=== PATIENT | female | born 1970 | race African-American/Black ===

== ENCOUNTER 2016-10-14 08:35 | Emergency (ER) | payer OTHER ==
[2016-10-14 08:43] VITALS: PULSE 90; TEMP 98; BMI 32.0
[2016-10-14] MEDS ORDERED: KETOROLAC TROMETHAMINE 60 MG/2 ML VIAL IM ONE (09:03)
[2016-10-14] MEDS ORDERED: KETOROLAC TROMETHAMINE 60 MG/2 ML VIAL ONE (09:06)
--- NOTE | 2016-10-14 09:21 | PDOC ---
History of Present Illness - General Chief Complaint: Pain Stated Complaint: HIP PAIN Time Seen by Provider: 10/14/16 08:45 History Source: Patient Exam Limitations: No Limitations - History of Present Illness Initial Comments: 10/14/16 09:16 45 yr female with history of asthma, chronic low back pain, left side sciatica states the past 3 days pain is worsening and radiating across low back to left buttock and thigh. no abd pain no fever, no urinary or bowel complaints, no saddle anesthesia . Pt is followed by . Severity: reports: moderate Pain Location: reports: back Method of Injury: Yes: unknown Loss of Consciousness: no loss of consciousness Associated Symptoms (Fall): denies symptoms Past History - Past Medical History Allergies/Adverse Reactions: Allergies Allergy/AdvReac Type Severity Reaction Status Date / Time antiarthritic combination Allergy blister Verified 10/14/16 08:41 no.1 rash [From [facility] [place]] camphor [From [facility] [place]] Allergy Verified 10/14/16 08:41 menthol [From [facility] [place]] Allergy Verified 10/14/16 08:41 methyl salicylate Allergy Verified 10/14/16 08:41 [From [facility] [place]] rofecoxib [From Vioxx] Allergy Swelling Verified 10/14/16 08:41 tramadol Allergy Hives Verified 10/14/16 08:42 tramadol HCl [From Ultram] Allergy Swelling Verified 10/14/16 08:41 Home Medications: Ambulatory Orders Pregabalin [Lyrica -] 100 mg PO BID 08/12/15 Cyclobenzaprine HCl [Flexeril -] 5 mg PO TID PRN #21 tablet 10/14/16 Methylprednisolone [Medrol Dose Mohan] 4 mg PO ASDIR #21 tablet 10/14/16 Anemia: No Asthma: Yes Cancer: No Cardiac Disorders: No CVA: No COPD: No CHF: No Dementia: No Diabetes: No GI Disorders: Yes (HX ULCER/HERNIA, pancreatitis) Disorders: Yes (ovarian cysts) HTN: No Hypercholesterolemia: No Liver Disease: No Suicide Attempt (Hx): No Seizures: No Thyroid Disease: No Other medical history: BACK PAIN - Surgical History Abdominal Surgery: Yes (hernia, ) Appendectomy: No Cardiac Surgery: No Cholecystectomy: No Lung Surgery: No Neurologic Surgery: Yes (EPIDURAL INJECTIONS) Orthopedic Surgery: Yes (L4TH&5TH FINGER REPAIR) Other Surgical History: 10/14/16 09:20 hysterectomy - Reproductive History (#): 5 Para: 3 Spontaneous : 2 - Immunization History Immunization Up to Date: Yes - Psycho/Social/Smoking Cessation Hx Anxiety: Yes Suicidal Ideation: No Smoking Status: No Smoking History: Current every day smoker Have you smoked in the past 12 months: Yes Number of Cigarettes Smoked Daily: 4 If you are a former smoker, when did you quit?: 7 months Information on smoking cessation initiated: No 'Breaking Loose' booklet given: 12/13/15 Hx Alcohol Use: No Drug/Substance Use Hx: No Substance Use Type: None Hx Substance Use Treatment: No Trauma Specific PMHX - Complaint Specific PMHX Arthritis: Yes Back Injury: Yes Review of Systems - Review of Systems Able to Perform ROS?: Yes Is the patient limited Singaporean proficient: No Constitutional: No: Symptoms Reported HEENTM: No: Symptoms Reported Respiratory: No: Symptoms reported Cardiac (ROS): No: Symptoms Reported ABD/GI: No: Symptoms Reported : No: Symptoms Reported Musculoskeletal: Yes: See HPI, Back Pain Integumentary: No: Symptoms Reported Neurological: No: Symptoms reported *Physical Exam - Vital Signs Last Vital Signs Temp Pulse Resp BP Pulse Ox 98.0 F 90 20 144/105 100 10/14/16 08:37 10/14/16 08:37 10/14/16 08:37 10/14/16 08:37 10/14/16 08:37 - Physical Exam General Appearance: Yes: Nourished, Appropriately Dressed, Other (sitting cross legged comfortably on stretcher ). No: Apparent Distress HEENT: positive: EOMI, BERH[place], Normal ENT Inspection, TMs Normal, Pharynx Normal Neck: positive: Supple Respiratory/Chest: positive: Lungs Clear, Normal Breath Sounds Cardiovascular: positive: Regular Rhythm, Regular Rate Gastrointestinal/Abdominal: positive: Normal Bowel Sounds, Soft. negative: Tender Lymphatic: negative: Adenopathy Musculoskeletal: positive: Normal Inspection, Decreased Range of Motion, Vertebral Tenderness (lower lumbar spine and left paraspinal soft tissue TTP). negative: CVA Tenderness, CVA Tenderness (R), CVA Tenderness (L) Extremity: positive: Normal Capillary Refill, Normal Inspection, Normal Range of Motion, Pelvis Stable. negative: Swelling, Calf Tenderness Integumentary: positive: Normal Color, Dry, Warm Neurologic: positive: Fully Oriented, Alert, Normal Mood/Affect, Normal Response , Motor Strength 01/29 ED Treatment Course - RADIOLOGY Radiology Studies Ordered: Category Date Time Status SPINE-LUMBAR ONLY [RAD] Stat Radiology 10/14/16 09:04 Ordered - Medications Given in the ED: ED Medications Discontinued Medications Generic Name Dose Route Start Last Admin Trade Name Freq PRN Reason Stop Dose Admin Ketorolac Tromethamine 60 mg 10/14/16 09:03 10/14/16 09:15 Toradol Injection - IM 10/14/16 09:04 60 mg ONCE ONE Administration Medical Decision Making - Medical Decision Making 10/14/16 09:21 cc: low back pain left buttock to thigh radiates across low back will get xray , toradol for pain (pt has had before states it helps) pt has no urinary or bowel dysfunction 10/14/16 13:12 xray results discussed with pt pt to follow with orthopedist as discussed pt is aware of reasons to return to the ER pt stable no acute distress, ambulatory *DC/Admit/Observation/Transfer Diagnosis at time of Disposition: Low back pain with sciatica Qualifiers: Chronicity: chronic Back pain laterality: left Sciatica laterality: sciatica of left side Qualified Code(s): M54.42 - Lumbago with sciatica, left side - Discharge Dispostion Disposition: HOME Condition at time of disposition: Improved - Prescriptions Prescriptions: Cyclobenzaprine HCl [Flexeril -] 5 mg PO TID PRN #21 tablet PRN Reason: Muscle Spasms Methylprednisolone [Medrol Dose Mohan] 4 mg PO ASDIR #21 tablet - Referrals Referrals: Cyrus De Leon MD [Primary Care Provider] - Eric Burciaga MD [Staff Physician] - - Patient Instructions Additional Instructions: follow with the orthopedist or with your neurologist in 3-7 days for follow up take the flexeril muscle relaxant as prescribed for spasm, DO 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
[2016-10-14 09:29] VITALS: BP 132/86
== END 2016-10-14 10:07 | disposition home or self-care (01) ==
LOC: JER 08:35 → JERFT 08:35
PROC: 3E0233Z Introduction of Anti-inflammatory into Muscle, Percutaneous Approach (ICD-10-PCS; principal; 2016-10-14)
DX: M54.42 Lumbago with sciatica, left side (principal); J45.909 Unspecified asthma, uncomplicated; F17.210 Nicotine dependence, cigarettes, uncomplicated
CPT/HCPCS: 72100-TC; 96372; 99281-25

== ENCOUNTER 2016-12-31 11:01 | Emergency (ER) | payer OTHER ==
[2016-12-31 11:22] VITALS: BP 132/99; PULSE 81; TEMP 98.2; BMI 31.4
== END 2016-12-31 13:00 | disposition left against medical advice (07) ==
LOC: JER 11:01 → JERFT 11:01
DX: Z53.21 Procedure and treatment not carried out due to patient leaving prior to being seen by health care provider (principal)
CPT/HCPCS: 99281-25

== ENCOUNTER 2017-01-11 21:44 | Emergency (ER) | payer OTHER ==
[2017-01-11 21:50] VITALS: BP 131/86; PULSE 115; TEMP 97.5; BMI 31.2
[2017-01-11] MEDS ORDERED: OXYCODONE/APAP 5/325MG COMBO TABLET PO ONE (22:02)
[2017-01-11] MEDS ORDERED: OXYCODONE/APAP 5/325MG COMBO TABLET ONE (22:29)
--- NOTE | 2017-01-12 00:50 | PDOC ---
"History of Present Illness - General Chief Complaint: Muscle Cramping Stated Complaint: L LEG PAIN Time Seen by Provider: 01/11/17 21:52 History Source: Patient Exam Limitations: No Limitations - History of Present Illness Initial Comments: 01/12/17 00:46 46 yo Female patient presents to ED c/o left hip pain. Patient states she was sitting on the floor her laundry when she tried to stand up twice and was unable to. Patient reports she had to be assisted to her couch by her son and then called EMS. LNMP: Hysterectomy. Denies numbness, tingling, trauma, or any other complaints at this time. Modifying Factors: worse with: cold therapy, eating, immobilization, medication , movement, rest, other Associated Symptoms: denies: denies symptoms, chest pain, cough, diaphoresis, fever/chills, headaches, loss of appetite, malaise, nausea/vomiting, rash, seizure, shortness of breath, syncope, weakness, other Aspirin Received prior to arrival: No: no aspirin today, unknown, 81 mg x 1, 81 mg x 2, 81 mg x 3, 81 mg x 4, 325 mg x 1, provided at home, provided by EMS, provided by ED Beta Brayan Given by EMS(Core Measure): No Beta Brayan Taken at Home(Core Measure): No Beta Brayan Not Indicated at this Time(Core Measure): No Past History - Travel Traveled outside of the country in the last 30 days: No Close contact w/someone who was outside of country & ill: No - Past Medical History Allergies/Adverse Reactions: Allergies Allergy/AdvReac Type Severity Reaction Status Date / Time antiarthritic combination Allergy blister Verified 01/11/17 21:47 no.1 rash [From [place]] camphor [From [place] [facility]] Allergy Verified 01/11/17 21:47 menthol [From [place]] Allergy Verified 01/11/17 21:47 methyl salicylate Allergy Verified 01/11/17 21:47 [From [place]] rofecoxib [From Vioxx] Allergy Swelling Verified 01/11/17 21:47 tramadol Allergy Hives Verified 01/11/17 21:47 tramadol HCl [From Ultram] Allergy Swelling Verified 01/11/17 21:47 Home Medications: Ambulatory Orders Metaxalone [Skelaxin] 800 mg PO QID PRN #28 tablet 01/12/17 Omeprazole 20 mg PO BID 01/12/17 Oxycodone HCl/Acetaminophen [Endocet 2.5-325 mg Tablet] 1 each PO Q6H PRN #12 tablet MDD 4 tabs 01/12/17 Anemia: No Asthma: Yes Cancer: No Cardiac Disorders: No CVA: No COPD: No CHF: No Dementia: No Diabetes: No GI Disorders: Yes (HX ULCER/HERNIA, pancreatitis) Disorders: Yes (ovarian cysts) HTN: No Hypercholesterolemia: No Liver Disease: No Suicide Attempt (Hx): No Seizures: No Thyroid Disease: No - Surgical History Abdominal Surgery: Yes (hernia, ) Appendectomy: No Cardiac Surgery: No Cholecystectomy: No Lung Surgery: No Neurologic Surgery: Yes (EPIDURAL INJECTIONS) Orthopedic Surgery: Yes (L4TH&5TH FINGER REPAIR) - Reproductive History (#): 5 Para: 3 Spontaneous : 2 - Immunization History Immunization Up to Date: Yes - Psycho/Social/Smoking Cessation Hx Anxiety: Yes Suicidal Ideation: No Smoking Status: No Smoking History: Never smoked Have you smoked in the past 12 months: No Number of Cigarettes Smoked Daily: 4 If you are a former smoker, when did you quit?: 7 months Information on smoking cessation initiated: No 'Breaking Loose' booklet given: 12/13/15 Hx Alcohol Use: No Drug/Substance Use Hx: No Substance Use Type: None Hx Substance Use Treatment: No Review of Systems - Review of Systems Able to Perform ROS?: Yes Is the patient limited Fijian proficient: No Musculoskeletal: Yes: Joint Pain All Other Systems: Reviewed and Negative *Physical Exam - Vital Signs Last Vital Signs Temp Pulse Resp BP Pulse Ox 97.5 F L 115 H 20 131/86 99 01/11/17 21:48 01/11/17 21:48 01/11/17 21:48 01/11/17 21:48 01/11/17 21:48 - Physical Exam General Appearance: Yes: Nourished, Appropriately Dressed. No: Apparent Distress, Disheveled, Mild Distress, Moderate Distress, Severe Distress Respiratory/Chest: positive: Lungs Clear, Normal Breath Sounds. negative: Respiratory Distress, Accessory Muscle Use, Labored Respiration, Decreased Breath Sounds, Stridor, Wheezing Cardiovascular: positive: Regular Rhythm, Regular Rate. negative: Edema, JVD, Murmur Gastrointestinal/Abdominal: positive: Normal Bowel Sounds, Soft. negative: Distended, Guarding, Rebound, Tenderness Musculoskeletal: positive: Normal Inspection. negative: CVA Tenderness Extremity: positive: Normal Capillary Refill, Normal Inspection, Normal Range of Motion, Tender (Lt hip tenderness on examination. Decreased adduction and abduction.), Pelvis Stable. 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 NML intact, Fully Oriented, Alert, Normal Mood/ Affect, Normal Response, Motor Strength 01/29 ED Treatment Course - RADIOLOGY Radiology Studies Ordered: Category Date Time Status HIP & PELVIS-LEFT [RAD] Stat Radiology 01/12/17 00:20 Ordered - Medications Given in the ED: ED Medications Discontinued Medications Generic Name Dose Route Start Last Admin Trade Name Freq PRN Reason Stop Dose Admin Oxycodone/Acetaminophen 2 combo 01/11/17 22:02 01/11/17 22:39 Percocet 5/325 - PO 01/11/17 22:03 2 combo ONCE ONE Administration Medical Decision Making - Medical Decision Making 01/12/17 01:18 logo Welcome Casper Sherman Update Personal Info | FAQ | Help | Search Results Help Please direct any questions regarding prescription data displayed on the [facility] to the dispensing pharmacy (Click - Show Extended View). The dispenser is the source of all data presented. Only the dispenser can confirm or modify the data reported to, and displayed on, the [facility]. Patient Search Multi-Patient Search Reports Drug Listing Designation My [facility] Numbers Data Detail Level: Printer-Friendly View | Show Extended View Confidential Drug Utilization Report Search Terms: Eileen Mcgill, 1970 Search Date: 01/12/2017 01:17:34 AM The Drug Utilization Report below displays all of the controlled substance prescriptions, if any, that your patient has filled in the last twelve months. The information displayed on this report is compiled from pharmacy submissions to the Department, and accurately reflects the information as submitted by the pharmacies. This report was requested by: Casper Sherman | Reference #: [id number] Others' Prescriptions Patient Name: Eileen Wren Date: 1970 Address: [address] [place] [address] Sex: Female Rx Written Rx Dispensed Drug Quantity Days Supply Prescriber Name 12/29/2016 12/29/2016 oxycodone-acetaminophen 5-325 mg tab 6 2 Debbie Hoang 12/18/2016 12/18/2016 oxycodone-acetaminophen 5-325 mg tab 14 4 Leonid Watson N 11/09/2016 12/12/2016 lyrica 150 mg capsule 60 30 HunterJose J MD 11/17/2016 11/17/2016 acetaminophen-cod #3 tablet 6 2 Debbie Hoang 11/09/2016 11/14/2016 lyrica 150 mg capsule 60 30 HunterJose J MD 05/05/2016 10/01/2016 carisoprodol 350 mg tablet 60 30 DoblinKimberly NP 09/01/2016 10/01/2016 lyrica 150 mg capsule 60 30 HunterJose J MD 09/07/2016 09/07/2016 acetaminophen-cod #3 tablet 30 5 MendozaMukund etienneony N 09/01/2016 09/01/2016 lyrica 150 mg capsule 60 30 HunterJose J MD 05/05/2016 08/28/2016 carisoprodol 350 mg tablet 60 30 DoblinKimberly NP 07/20/2016 08/28/2016 lyrica 100 mg capsule 60 30 HunterJose J MD 08/03/2016 08/03/2016 oxycodone-acetaminophen 5-325 mg tab 12 3 Winnie Fry Nicol, FNP 07/20/2016 07/20/2016 lyrica 100 mg capsule 60 30 HunterJose J MD 07/20/2016 07/20/2016 acetaminophen-cod #2 tablet 60 30 HunterJose J MD 05/05/2016 06/29/2016 carisoprodol 350 mg tablet 60 30 DoblinKimberly NP 06/08/2016 06/10/2016 oxycodone hcl er 20 mg tablet 60 30 Doblin, Kimberly MALDONADO 04/03/2016 06/05/2016 lyrica 100 mg capsule 60 30 Doblin, Kimberly MALDONADO 05/05/2016 05/25/2016 carisoprodol 350 mg tablet 60 30 DoblinKimberly NP 04/03/2016 05/05/2016 carisoprodol 250 mg tablet 60 30 Doblin, Kimberly [employer]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 04/03/2016 05/05/2016 lyrica 100 mg capsule 60 30 Doblin, Kimberly [employer]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 05/05/2016 05/05/2016 oxycodone hcl er 20 mg tablet 60 30 Doblin, Kimberly NP Patient Name: Eileen Mcgill Date: 1970 Address: [address] [place] [address] Sex: Female Rx Written Rx Dispensed Drug Quantity Days Supply Prescriber Name 09/18/2016 09/18/2016 acetaminophen-cod #3 tablet 60 20 Khang, Kimberlee Aleman MD Patient Name: Eileen Wren Date: 1970 Address: [address] [place] [address] Sex: Female Rx Written Rx Dispensed Drug Quantity Days Supply Prescriber Name 04/03/2016 04/03/2016 oxycontin 20 mg tablet 60 30 Doblin, Kimberly [employer]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 04/03/2016 04/03/2016 carisoprodol 250 mg tablet 60 30 Doblin, Kimberly [employer]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 04/03/2016 04/03/2016 lyrica 100 mg capsule 60 30 Doblin, Kimberly [employer]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 03/06/2016 03/06/2016 lyrica 100 mg capsule 60 30 Doblin, Kimberly [employer]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 03/06/2016 03/06/2016 oxycontin 20 mg tablet 60 30 Doblin, Kimberly [employer]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 03/06/2016 03/06/2016 carisoprodol 250 mg tablet 60 30 Doblin, Kimberly [employer]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 02/07/2016 02/07/2016 oxycontin 20 mg tablet 60 30 Doblin, Kimberly [employer]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 * - Drugs marked with an asterisk are compound drugs. If the compound drug is made up of more than one controlled substance, then each controlled substance will be a separate row in the table. Search Other States To report suspicious activity related to controlled substances, please click here and provide any relevant information. To send questions or comments about this report to the [place] of Narcotic Enforcement, please click here or call (Option 1). For information regarding substance abuse rehabilitation treatment, please visit www.[place].gov or call . *DC/Admit/Observation/Transfer Diagnosis at time of Disposition: Low back pain with sciatica Qualifiers: Chronicity: chronic Back pain laterality: left Sciatica laterality: sciatica of left side Qualified Code(s): M54.42 - Lumbago with sciatica, left side; G89.29 - Other chronic pain - Discharge Dispostion Disposition: HOME Condition at time of disposition: Improved Admit: No - Prescriptions Prescriptions: Oxycodone HCl/Acetaminophen [Endocet 2.5-325 mg Tablet] 1 each PO Q6H PRN #12 tablet MDD 4 tabs PRN Reason: Severe Pain Metaxalone [Skelaxin] 800 mg PO QID PRN #28 tablet PRN Reason: Back Pain - Patient Instructions Printed Discharge Instructions: DI for Low Back Pain Additional Instructions: FOLLOW UP WITH DR. GONZALEZ. CALL TO SCHEDULE APPOINTMENT. TAKE MEDICATIONS PRESCRIBED. DO NOT DRIVE, DRINK ALCOHOL, OR OPERATE HEAVY MACHINERY WHILE TAKING ENDOCET OR SKELAXIN. YOU NEED TO FOLLOW UP WITH YOUR GOLD LEAF ROLLER TO DEVELOP PLAN IN MANAGING YOUR CHRONIC PAIN. Print Language: PORTUGUESE"
[2017-01-12] MEDS ORDERED: OXYCODONE/APAP 5/325MG COMBO TABLET PO ONE (01:43)
[2017-01-12] MEDS ORDERED: OXYCODONE/APAP 5/325MG COMBO TABLET ONE (01:45)
[2017-01-12 02:01] LABS: URINE APPEARANCE CLEAR; URINE COLOR YELLOW
[2017-01-12 02:02] LABS: URINE BILIRUBIN NEGATIVE (NEGATIVE); URINE BLOOD NEGATIVE (NEGATIVE); URINE GLUCOSE (UA) NEGATIVE (NEGATIVE); URINE KETONE NEGATIVE (NEGATIVE); URINE LEUK ESTERASE NEGATIVE (NEGATIVE); URINE NITRITE POSITIVE (NEGATIVE); URINE PROTEIN NEGATIVE (NEGATIVE); URINE UROBILINOGEN 0.2 E.U/dl E.U./dl (0.2-1.0)
[2017-01-12 02:20] LABS: URINE RBC <1 /hpf (0-3); URINE WBC 6 /hpf (3-5)
[2017-01-12 02:21] LABS: URINE BACTERIA MANY /hpf (NONE SEEN); URINE HYALINE CAST 25 /lpf; URINE MUCUS MANY
== END 2017-01-12 01:57 | disposition home or self-care (01) ==
LOC: JER 21:44
DX: M54.42 Lumbago with sciatica, left side (principal); G89.29 Other chronic pain
CPT/HCPCS: 73523-TC; 81003; 81015; 87086; 99281-25; 99282-25

== ENCOUNTER 2017-04-03 17:27 | Emergency (ER) | payer OTHER ==
[2017-04-03 17:37] VITALS: BP 152/84; TEMP 98.1; BMI 35.2
[2017-04-03] MEDS ORDERED: predniSONE 20 MG TABLET (UD) PO ONE (18:43)
[2017-04-03] MEDS ORDERED: CYCLOBENZAPRINE HCL 10 MG TABLET (FP) PO ONE (18:43)
[2017-04-03] MEDS ORDERED: CYCLOBENZAPRINE HCL 10 MG TABLET (FP) ONE (18:46)
[2017-04-03] MEDS ORDERED: predniSONE 20 MG TABLET (UD) ONE (18:46)
[2017-04-03] MEDS ORDERED: OXYCODONE/APAP 5/325MG COMBO TABLET PO ONE ×3 (18:49→20:39)
--- NOTE | 2017-04-03 18:49 | PDOC ---
History of Present Illness - General Chief Complaint: Back Pain Stated Complaint: PAIN Time Seen by Provider: 04/03/17 18:10 History Source: Patient Exam Limitations: No Limitations - History of Present Illness Initial Comments: 04/03/17 20:39 My Chief Complaint: Left-sided lower back pain with radiation down left leg History of present Illness: Patient is a 46-year-old female with a history of gastric reflux. Asthma, history of pancreatitis, osteopenia left hip and lumbar disc disease with previous radiculopathy down left leg here today complaining of worsening left-sided lower back pain with radiation down left lateral thigh to anterior left lower leg getting worse over the last 3 days. Patient denies any strenuous activities or exercise. Patient reports that in the past she had gotten epidural injections. Patient numbness of her left leg or any saddle anesthesia or incontinency. Patient reports having an MRI of lumbar sacral spine on 11/16/2016 that showed disc dissemination facet arthropathy and loss of disc height grade 1 spondylolisthesis L4 and L5 and some encroachment onto L5 and S1 nerve root. He felt pain and Aleve. Patient reports the pain currently as a 10 out of 10. Patient reports that her left leg gave out twice today when walking. 04/03/17 22:43 Occurred: reports: other (3 days ) Severity: reports: severe (left sided radiates to left lateral thigh, than anterior down left leg to foot) Pain Location: reports: back (left lower radiates down left lateral thigh than anterior down left lower leg) Method of Injury: Yes: unknown Modifying Factors: improves with: None Loss of Consciousness: no loss of consciousness Associated Symptoms (Fall): trouble walking (intermittently ) Past History - Past Medical History Allergies/Adverse Reactions: Allergies Allergy/AdvReac Type Severity Reaction Status Date / Time antiarthritic combination Allergy blister Verified 04/03/17 17:34 no.1 rash [From [place]] camphor [From [place]] Allergy Verified 04/03/17 17:34 menthol [From [place]] Allergy Verified 04/03/17 17:34 methyl salicylate Allergy Verified 04/03/17 17:34 [From [place]] rofecoxib [From Vioxx] Allergy Swelling Verified 04/03/17 17:34 tramadol Allergy Hives Verified 04/03/17 17:34 tramadol HCl [From Ultram] Allergy Swelling Verified 04/03/17 17:34 Home Medications: Ambulatory Orders Omeprazole 40 mg PO DAILY 01/28/17 Metaxalone [Skelaxin] 800 mg PO TID PRN #21 tablet 04/03/17 Methylprednisolone [Medrol Dose [place]] 4 mg PO ASDIR #21 tablet 04/03/17 Oxycodone HCl/Acetaminophen [Percocet 5-325 mg Tablet] 1 - 2 tab PO Q6H PRN #18 tab MDD 6 04/03/17 Anemia: No Asthma: Yes Cancer: No Cardiac Disorders: No CVA: No COPD: No CHF: No Dementia: No Diabetes: No GI Disorders: Yes (HX ULCER/HERNIA, pancreatitis) Disorders: Yes (ovarian cysts) HTN: No Hypercholesterolemia: No Liver Disease: No Suicide Attempt (Hx): No Seizures: No Thyroid Disease: No Other medical history: back pain - Surgical History Abdominal Surgery: Yes (hernia, ) Appendectomy: No Cardiac Surgery: No Cholecystectomy: No Lung Surgery: No Neurologic Surgery: Yes (EPIDURAL INJECTIONS) Orthopedic Surgery: Yes (L4TH&5TH FINGER REPAIR) - Reproductive History (#): 5 Para: 3 Spontaneous : 2 - Immunization History Immunization Up to Date: Yes - Psycho/Social/Smoking Cessation Hx Anxiety: Yes Suicidal Ideation: No Smoking Status: No Smoking History: Current every day smoker Have you smoked in the past 12 months: Yes Number of Cigarettes Smoked Daily: 4 If you are a former smoker, when did you quit?: 7 months Information on smoking cessation initiated: Yes 'Breaking Loose' booklet given: 04/03/17 Hx Alcohol Use: No Drug/Substance Use Hx: No Substance Use Type: Alcohol Hx Substance Use Treatment: No Trauma Specific PMHX - Complaint Specific PMHX Arthritis: Yes Back Injury: Yes Review of Systems - Review of Systems Able to Perform ROS?: Yes Constitutional: No: Symptoms Reported HEENTM: No: Symptoms Reported Respiratory: No: Symptoms reported Cardiac (ROS): No: Symptoms Reported ABD/GI: No: Symptoms Reported : No: Symptoms Reported Musculoskeletal: Yes: Back Pain (left lower back pain radiates down left lateral thigh than anteriorly down left anterior leg ) Integumentary: No: Symptoms Reported Neurological: No: Symptoms reported *Physical Exam - Vital Signs Last Vital Signs Temp Pulse Resp BP Pulse Ox 98.1 F 152/84 04/03/17 17:34 04/03/17 17:34 - Physical Exam General Appearance: Yes: Appropriately Dressed Respiratory/Chest: positive: Lungs Clear, Normal Breath Sounds. negative: Chest Tender, Respiratory Distress Cardiovascular: positive: Regular Rhythm, Regular Rate, S1, S2 Musculoskeletal: positive: Normal Inspection, Decreased Range of Motion (from waist ), Muscle Spasm (left lumbar paraspinal muscle ). negative: CVA Tenderness, CVA Tenderness (R), CVA Tenderness (L), Vertebral Tenderness Extremity: positive: Normal Capillary Refill, Normal Inspection, Normal Range of Motion Integumentary: positive: Normal Color Neurologic: positive: Alert, Normal Response, Motor Strength 5/5 (right leg motor/strength 5/5/, slightly decreased left leg 4/4), Respond to painful stimul (right leg, left lower leg decreased sensation anteriorly ), Sensory Deficit (left lower leg decreased sensation anteriorly ), Other (+ SLR rt., negative left ). negative: Numbness Deep Tendon Reflexes: Knee (L): 3+, Knee (R): 3+ Medical Decision Making - Medical Decision Making Patient is a 46-year-old female with a history of gastric reflux. Asthma, history of pancreatitis, osteopenia left hip and lumbar disc disease with previous radiculopathy down left leg here today complaining of worsening left- sided lower back pain with radiation down left lateral thigh to anterior left lower leg getting worse over the last 3 days. Patient denies any strenuous activities or exercise. Patient reports that in the past she had gotten epidural injections. Patient numbness of her left leg or any saddle anesthesia or incontinency. Patient reports having an MRI of lumbar sacral spine on 2016 that showed disc dissemination facet arthropathy and loss of disc height grade 1 spondylolisthesis listhesis L4 and L5 and some encroachment onto L5 and S1 nerve root. He felt pain and Aleve. Patient reports the pain currently as a 10 out of 10. Patient reports that her left leg gave out twice today when walking. left lower back pain with radiculopathy down left leg PLAN: perococet 5 mg/325 mg po now flexeril 10 mg po now pt. refused "its gives me palpitations prednisone 40 mg po now than medrol dose pack cane pain persists will given additional percocet 5mg/325 mg po now will discharge to home with rx for percocet 5mg/325 mg po every 6 hrs prn severe pain # 12 skelexin 800 mg tid for 7 days follow up with pain management follow up with orthopedist 04/03/17 20:28 REMINDER: Attestation to the completion of mandatory prescriber education, using the [employer] application on [employer], was due 03/27/17. For more information go to: [email or web address]/ Patient Search Multi-Patient Search Reports Drug Listing Designation My NASRIN Numbers Data Detail Level: Printer-Friendly View Extended View Confidential Drug Utilization Report Search Terms: Eileen Mcgill, 1970 Search Date: 04/03/2017 08:28:06 PM The Drug Utilization Report below displays all of the controlled substance prescriptions, if any, that your patient has filled in the last twelve months. The information displayed on this report is compiled from pharmacy submissions to the Department, and accurately reflects the information as submitted by the pharmacies. This report was requested by: Xuan Smith | Reference #: [id number] Others' Prescriptions Patient Name: Eileen Wren Date: 1970 Address: [address] [place] [address] Sex: Female Rx Written Rx Dispensed Drug Quantity Days Supply Prescriber Name 01/15/2017 01/15/2017 oxycodone-acetaminophen 5-325 mg tab 5 2 Fabio Dennison 09/01/2016 01/12/2017 lyrica 150 mg capsule 60 30 Jose J Harrison MD 01/12/2017 01/12/2017 oxycodone-acetaminophen 5-325 mg tab 12 3 Aminata Avalos Acnp 12/29/2016 12/29/2016 oxycodone-acetaminophen 5-325 mg tab 6 2 Debbie Hoang 04/03/17 20:50 04/03/17 21:19 04/03/17 22:44 *DC/Admit/Observation/Transfer Diagnosis at time of Disposition: Lumbar pain with radiation down left leg - Discharge Dispostion Disposition: HOME Condition at time of disposition: Stable - Prescriptions Prescriptions: Methylprednisolone [Medrol Dose Mohan] 4 mg PO ASDIR #21 tablet Oxycodone HCl/Acetaminophen [Percocet 5-325 mg Tablet] 1 - 2 tab PO Q6H PRN #18 tab MDD 6 PRN Reason: Severe Pain Metaxalone [Skelaxin] 800 mg PO TID PRN #21 tablet PRN Reason: Muscle Spasms - Referrals Referrals: Cyrus De Leon MD [Primary Care Provider] - Cory Finley MD [Staff Physician] - Ivan Waterman MD [Staff Physician] - - Patient Instructions Additional Instructions: Follow-up with orthopedist of your choice or bleed the orthopedist at [facility] that she were previously referred to Follow up with neurologist as soon as possible Use Cane for ambulation Return to emergency room if any numbness of private area or legs or inability to control bladder or bowel movements Patient understanding of discharge instructions and all questions were answered
[2017-04-03] MEDS ORDERED: OXYCODONE/APAP 5/325MG COMBO TABLET ONE ×2 (18:53→20:47)
== END 2017-04-03 21:28 | disposition home or self-care (01) ==
LOC: JERFT 17:27
DX: M54.16 Radiculopathy, lumbar region (principal)
CPT/HCPCS: 99281-25

== ENCOUNTER 2017-07-06 08:48 | Emergency (ER) | payer OTHER ==
[2017-07-06 08:52] VITALS: BP 140/84; PULSE 83; TEMP 98.2; BMI 34.7
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
[2017-07-06] MEDS ORDERED: KETOROLAC TROMETHAMINE 60 MG/2 ML VIAL IM ONE (09:36)
[2017-07-06] MEDS ORDERED: predniSONE 20 MG TABLET (UD) PO ONE (09:36)
[2017-07-06] MEDS ORDERED: predniSONE 20 MG TABLET (UD) ONE (09:41)
[2017-07-06] MEDS ORDERED: KETOROLAC TROMETHAMINE 60 MG/2 ML VIAL ONE (09:41)
== END 2017-07-06 09:50 | disposition home or self-care (01) ==
LOC: JERFT 08:48
PROC: 3E0233Z Introduction of Anti-inflammatory into Muscle, Percutaneous Approach (ICD-10-PCS; principal; 2017-07-06)
DX: S39.012A Strain of muscle, fascia and tendon of lower back, initial encounter (principal); X58.XXXA Exposure to other specified factors, initial encounter; Y93.89 Activity, other specified; Y92.231 Patient bathroom in hospital as the place of occurrence of the external cause; J45.909 Unspecified asthma, uncomplicated; N83.209 Unspecified ovarian cyst, unspecified side; F17.210 Nicotine dependence, cigarettes, uncomplicated
CPT/HCPCS: 99281-25

== ENCOUNTER 2017-08-12 11:22 | Emergency (ER) | payer OTHER ==
[2017-08-12 11:36] VITALS: TEMP 98.2; BMI 35.2
--- NOTE | 2017-08-12 11:48 | PDOC ---
History of Present Illness - General Chief Complaint: Pain, Acute Stated Complaint: SOB,CHEST PRESSURE,N/V/D,ABD PAIN Time Seen by Provider: 08/12/17 11:42 - History of Present Illness Initial Comments: 08/12/17 11:47 46 yo F with h/o asthma, DVT, chronic pelvic pain, right sided oophroectomy, and hysterectomy, L sided ovarian cyst who presents with complaint of SOB. Patient reports worsening SOB over the past 3 days with productive brown sputum cough and lower dull subcostal/diaphragmatic chest pain with radiation to back. Pain worse with deep inhalation. Endorses multiple episodes of non bloody emesis for the past 2 days. Transient episode of lightheadedness yesterday and subjective fever of 102. Denies fchills, diaphoresis, weakness, sensory disturbance, neck pain/jaw pain, leg swelling/tenderness abdominal pain, dysuria , flank pain. H/o DVT. Denies h/o NC, CABG, Stent, PE. Allergy to Vitrax, Tramadol, Ultram. PCP. Cyrus De Leon. 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 Smokes / PPD for 20 + years. Past History - Past Medical History Allergies/Adverse Reactions: Allergies Allergy/AdvReac Type Severity Reaction Status Date / Time antiarthritic combination Allergy blister Verified 08/12/17 11:31 no.1 rash [From [place]] camphor [From [place]] Allergy Verified 08/12/17 11:31 menthol [From [place]] Allergy Verified 08/12/17 11:31 methyl salicylate Allergy Verified 08/12/17 11:31 [From [place]] rofecoxib [From Vioxx] Allergy Swelling Verified 08/12/17 11:31 tramadol Allergy Hives Verified 08/12/17 11:31 tramadol HCl [From Ultram] Allergy Swelling Verified 08/12/17 11:31 Home Medications: Ambulatory Orders Cephalexin [Keflex] 500 mg PO BID 5 Days #9 capsule MDD 2 Tab 08/12/17 Fluconazole [Diflucan] 150 mg PO ONCE 10 Days #10 tablet 08/12/17 Omeprazole 40 mg PO DAILY 08/12/17 Pregabalin [Lyrica] 75 mg PO BID 08/12/17 Anemia: No Asthma: Yes Cancer: No Cardiac Disorders: No CVA: No COPD: No CHF: No Dementia: No Diabetes: No GI Disorders: Yes (HX ULCER/HERNIA, pancreatitis) Disorders: Yes (ovarian cysts) HTN: No Hypercholesterolemia: No Liver Disease: No Seizures: No Thyroid Disease: No - Surgical History Abdominal Surgery: Yes (hernia, ) Appendectomy: No Cardiac Surgery: No Cholecystectomy: No Lung Surgery: No Neurologic Surgery: Yes (EPIDURAL INJECTIONS) Orthopedic Surgery: Yes (L4TH&5TH FINGER REPAIR) - Reproductive History (#): 5 Para: 3 Spontaneous : 2 - Immunization History Immunization Up to Date: Yes - Suicide/Smoking/Psychosocial Hx Smoking Status: No Smoking History: Current some day smoker Have you smoked in the past 12 months: Yes Number of Cigarettes Smoked Daily: 3 If you are a former smoker, when did you quit?: 7 months Information on smoking cessation initiated: No 'Breaking Loose' booklet given: 07/06/17 Hx Alcohol Use: No Drug/Substance Use Hx: No Substance Use Type: None Hx Substance Use Treatment: No Review of Systems - Review of Systems Comments:: 08/12/17 11:47 GENERAL/CONSTITUTIONAL: No fever or chills. No weakness. HEAD, EYES, EARS, NOSE AND THROAT: No change in vision. No ear pain or discharge. No sore throat.- CARDIOVASCULAR: + SOB. No chest pain. RESPIRATORY: + cough, and wheezing. No hemoptysis. GASTROINTESTINAL: + Diarrhea, nausea, and vomiting. No or constipation. GENITOURINARY: No dysuria, frequency, or change in urination. MUSCULOSKELETAL: No joint or muscle swelling or pain. No neck or back pain. SKIN: No rash NEUROLOGIC: + lightheadedness. No headache, vertigo, loss of consciousness, or change in strength/sensation. ENDOCRINE: No increased thirst. No abnormal weight change HEMATOLOGIC/LYMPHATIC: + history of blood clots. No anemia, easy bleeding, ALLERGIC/IMMUNOLOGIC: No hives or skin allergy. *Physical Exam - Vital Signs Last Vital Signs Temp Pulse Resp BP Pulse Ox 98.2 F 101 H 19 125/65 99 08/12/17 11:31 08/12/17 11:31 08/12/17 11:31 08/12/17 11:31 08/12/17 11:31 - Physical Exam Comments: 08/12/17 11:45 GENERAL: Awake, alert, and fully oriented, in no acute distress HEAD: No signs of trauma, normocephalic, atraumatic EYES: PERRLA, EOMI, sclera anicteric, conjunctiva clear ENT: hearing grossly normal, nares patent, oropharynx clear without exudates. Moist mucosa NECK: Normal ROM, supple, no lymphadenopathy, JVD, or masses LUNGS: + diffuse expiratory rhonci. No distress, speaks full sentences. HEART: Regular rate and rhythm, normal S1 and S2, no murmurs, rubs or gallops, peripheral pulses normal and equal bilaterally. ABDOMEN: Soft, LLQ ttp, normoactive bowel sounds. No guarding, no rigidity, no rebound. No masses. Neg CVA or suprpapubic ttp. Neg benson sign or [place] point ttp. EXTREMITIES : Normal inspection, Normal range of motion, no edema. No clubbing or cyanosis. SKIN: Warm, Dry, normal turgor, no rashes or lesions noted. Heart Score/ECG Review - History History: Slightly suspicious - Electrocardiogram EKG: Normal - Age Age: 45-65 - Risk Factors Risk Factors Heart Score: Yes Smoking History, Yes Positive family hx of cardiac disease, Yes Hx Obesity Based on the list above the patient has:: >/=3 risk factors or Hx atherosclerotic disease - ECG Intrepretation Rhythm: Regular Rhythm - [place]: Normal - ST and T Early Repolarization: No Non Specific ST-T Wave changes: No Flattened T Waves: No Prolonged Q-T Interval: No - ECG Impressions Normal ECG: Yes Non-specific ST Elevation: No Tachycardia: Sinus ED Treatment Course - LABORATORY CBC & Chemistry Diagram: 08/12/17 11:58 08/12/17 12:39 Medical Decision Making - Medical Decision Making 08/12/17 12:30 46 yo F with h/o asthma, DVT, chronic pelvic pain, hysterectomy and right sided oophroectomy, and L sided ovarian cyst who presents with mutliple complaints, of abdominal pain and SOB. Patient reports worsening SOB over the past 3 days with productive brown sputum cough and lower dull subcostal/ diaphragmatic chest pain with radiation to back and worse with deep inhalation. Multiple episodes of non bloody emesis for the past 2 days. Reports subjective fevers. Denies chills, diaphoresis, weakness, sensory disturbance, neck pain/ jaw pain, leg swelling/tenderness abdominal pain, dysuria, flank pain. Physical exam reveals coarse lungs sounds and rhonci and predominant LLQ ttp. Patient mildly tachycardic on arrival ~101. Clinical s/s suspicous for pneumonia vs. bronchitis. Given patients left lower quadrant pain and h/o ovarian cyst will obtain imaging to r/o ovarian torsion. Also consider diverticulitis in setting of diarrhea, abdominal pain, N/V, and subjective fevers. ED Course: CBC, CMP, UA, Lipase Transvaginal U/S CXR: No acute cardiopulmonary pathology EKG: Sinus tachycardia with absent MARK, STD, or T wave inversion. 08/12/17 12:38 IV Tylenol 1000 mg 08/12/17 12:44 CT AP: 08/12/17 13:59 UA: + Urine Nitrite. Will treat with Cephalexin 500 mg BID x 9 for 5 days. 08/12/17 13:59 CBC, CMP: Unremarkable 08/12/17 14:14 Cephalexin 500 mg PO. 08/12/17 15:24 CT AP: No acute Pathology Pelvic U/s: No evidence of torsion. Left ovary difficult to visualize. 08/12/17 15:25 Patient is stable and ready for discharge. Discussed return precautions with patient and advised to f/u with PCP and perscribed cephalexin 500 mg BID 5 days. *DC/Admit/Observation/Transfer Diagnosis at time of Disposition: Urinary tract infection Qualifiers: Urinary tract infection type: site unspecified Hematuria presence: without hematuria Qualified Code(s): N39.0 - Urinary tract infection, site not specified - Discharge Dispostion Disposition: HOME Condition at time of disposition: Stable Admit: No - Prescriptions Prescriptions: Cephalexin [Keflex] 500 mg PO BID 5 Days #9 capsule MDD 2 Tab Fluconazole [Diflucan] 150 mg PO ONCE 10 Days #10 tablet - Referrals Referrals: Cyrus De Leon MD [Primary Care Provider] - - Patient Instructions - Post Discharge Activity - Attestations Physician Attestion: 08/12/17 15:42 I attest to the documentation provided in this note.
[2017-08-12] MEDS ORDERED: SODIUM CHLORIDE 0.9% 1000 ML INFUS.BAG IV ONE (11:51)
[2017-08-12] MEDS ORDERED: ONDANSETRON 4 MG/2 ML VIAL IVPUSH ONE (11:51)
[2017-08-12] MEDS: ALBUTEROL SO4 2.5/IPRATROPIUM 0.5 INH SOL 3 ML VIAL.NEB. NEB SCH ×3 (12:15→12:55)
[2017-08-12] MEDS ORDERED: ALBUTEROL SO4 2.5/IPRATROPIUM 0.5 INH SOL 3 ML VIAL.NEB. NEB ONE (12:17)
[2017-08-12] MEDS ORDERED: ONDANSETRON 4 MG/2 ML VIAL ONE ×2 (12:18→13:11)
[2017-08-12 12:41] LABS: BASOPHIL 0.5 % (0-2.0); EOSINOPHIL 0.6 % (0-4.5); MCHC 29.5 g/dl (32.0-36.0); MEAN CELL VOLUME 67.1 fl (80-96); MEAN PLT VOLUME 7.4 fl (7.5-11.1); NEUTROPHILS 61.1 % (42.8-82.8); PLATELET COUNT 402 K/MM3 (134-434); RDW 21.6 % (11.6-15.6)
[2017-08-12] MEDS ORDERED: ACETAMINOPHEN 1000 MG/100 ML VIAL (NON FORMULARY) IVPB ONE (12:42)
[2017-08-12] MEDS ORDERED: ACETAMINOPHEN INJECTION 100 ML IVPB ONE (12:49)
[2017-08-12 12:52] LABS: MCH 19.8 pg (25.7-33.7)
[2017-08-12 12:56] LABS: URINE APPEARANCE SLCLOUDY; URINE BILIRUBIN NEGATIVE (NEGATIVE); URINE BLOOD NEGATIVE (NEGATIVE); URINE COLOR LTYELLOW; URINE GLUCOSE (UA) NEGATIVE (NEGATIVE); URINE KETONE NEGATIVE (NEGATIVE); URINE NITRITE POSITIVE (NEGATIVE); URINE PROTEIN NEGATIVE (NEGATIVE); URINE UROBILINOGEN NEGATIVE mg/dL (0.2-1.0)
[2017-08-12 13:01] LABS: URINE BACTERIA RARE /hpf (NONE SEEN); URINE MUCUS RARE; URINE RBC 1; URINE WBC 5
[2017-08-12] MEDS ORDERED: morphine CARPU-JECT 2 MG/1 ML DISP.SYRIN IVPUSH ONE (13:06)
[2017-08-12] MEDS ORDERED: ONDANSETRON 4 MG/2 ML VIAL IVPB ONE (13:06)
[2017-08-12] MEDS ORDERED: morphine SULFATE 4 MG/ML VIAL ONE (13:11)
[2017-08-12 13:20] LABS: ANION GAP 12 (8-16); CALCIUM 9.6 mg/dL (8.5-10.1); CO2 22 mmol/L (21-32); CREATININE 1.1 mg/dL (0.55-1.02); GLUCOSE,RANDOM 74 mg/dL (74-106); SGOT/AST 14 U/L (15-37); SGPT/ALT 23 U/L (12-78)
[2017-08-12 13:22] LABS: ALBUMIN 3.8 g/dl (3.4-5.0); ALK PHOS 125 U/L (45-117); BILIRUBIN,TOTAL 0.3 mg/dL (0.2-1.0); TOT PROT 7.6 g/dl (6.4-8.2)
[2017-08-12] MEDS ORDERED: CEPHALEXIN 250 MG/5 ML ORAL SUSPENSION PO ONE (14:12)
[2017-08-12 14:21] LABS: ANISOCYTOSIS 2+; HYPOCHROMIA 3+; MICROCYTOSIS 2+; TARGET CELLS 1+
[2017-08-12] MEDS ORDERED: CEPHALEXIN MONOHYDRATE 250 MG CAPSULE (FP) ONE (14:28)
--- NOTE | 2017-08-12 15:01 | PDOC ---
Attending Attestation - Resident Resident Name: CamRobiJoe - ED Attending Attestation I have performed the following: I have examined & evaluated the patient, The case was reviewed & discussed with the resident, I agree w/resident's findings & plan, Exceptions are as noted - HPI HPI: 08/12/17 15:01 46-year-old female with a history of asthma hypertension previous ovarian cyst status post hysterectomy and oophorectomy many years ago, here today complaining of lower abdominal pain. Patient states symptoms started 3 days ago described as left sided no radiation. Does describe urinary urgency but chills nausea or vomiting. Does report loose stool. When initially asked patient stated no fever, however on further questioning states she had a fever of 102 and the day prior no moderating factors - Physicial Exam PE: 08/12/17 15:01 Awake alert no acute distress. Lungs clear bilaterally. Cardiac regular tachycardia no murmurs rubs or gallops. Abdomen is soft, obese, left lower quadrant tender to palpation, left mid quadrant tender to palpation. No CVA tenderness. Extremities WW P no edema. Neuro: Alert oriented 3 - Medical Decision Making 08/12/17 14:57 46-year-old female with a history of asthma hypertension previous ovarian cyst status post hysterectomy and oophorectomy many years ago, here today complaining of lower abdominal pain. Patient states symptoms started 3 days ago described as left sided no radiation. Does describe urinary urgency but chills nausea or vomiting. Does report loose stool. When initially asked patient stated no fever, however on further questioning states she had a fever of 102 and the day prior no moderating factors Plan urinalysis, labs, CT abdomen and pelvis differential includes obstruction, diverticulitis, UTI, pyelonephritis, ovarian cysts rupture, chest x-ray to rule out pneumonia as patient is also complaining of cough pain control and reassessment <Nahomy Lima - Last Filed: 08/12/17 14:55> Heart Score/ECG Review - ECG Impressions Comment:: 08/12/17 15:03 EKG impressions reported by Dr. Lima: Sinus Tachycardia at 109bpm Otherwise Normal ECG. <Danny Marcano - Last Filed: 08/12/17 15:03>
[2017-08-12 16:01] VITALS: BP 130/73; PULSE 73
--- NOTE | 2017-08-12 16:19 | EKG ---
Test Reason : Blood Pressure : / mmHG Vent. Rate : 109 BPM Atrial Rate : 109 BPM P-R Int : 140 ms QRS Dur : 084 ms QT Int : 342 ms P-R-T Axes : 044 025 034 degrees QTc Int : 460 ms SINUS TACHYCARDIA OTHERWISE NORMAL ECG WHEN COMPARED WITH ECG OF 03-APR-2014 10:07, NO SIGNIFICANT CHANGE WAS FOUND Confirmed by EVELIA ASHRAF MD ([id number]) on 08/12/2017 4:19:46 PM Referred By: Confirmed By:EVELIA ASHRAF MD
[2017-08-12 17:05] LABS: URINE LEUK ESTERASE Negative (NEGATIVE)
== END 2017-08-12 16:23 | disposition home or self-care (01) ==
LOC: JER 11:22
PROC: 3E0F7GC Introduction of Other Therapeutic Substance into Respiratory Tract, Via Natural or Artificial Opening (ICD-10-PCS; principal; 2017-08-12)
PROC: 3E033NZ Introduction of Analgesics, Hypnotics, Sedatives into Peripheral Vein, Percutaneous Approach (ICD-10-PCS; 2017-08-12)
PROC: 3E033GC Introduction of Other Therapeutic Substance into Peripheral Vein, Percutaneous Approach (ICD-10-PCS; 2017-08-12)
PROC: 3E033GC Introduction of Other Therapeutic Substance into Peripheral Vein, Percutaneous Approach (ICD-10-PCS; 2017-08-12)
PROC: 3E033NZ Introduction of Analgesics, Hypnotics, Sedatives into Peripheral Vein, Percutaneous Approach (ICD-10-PCS; 2017-08-12)
DX: R07.89 Other chest pain (principal); R11.2 Nausea with vomiting, unspecified; N39.0 Urinary tract infection, site not specified; N83.202 Unspecified ovarian cyst, left side; F17.210 Nicotine dependence, cigarettes, uncomplicated
CPT/HCPCS: 36415; 71020-TC; 74177-TC; 76830-TC; 80053; 81003; 81015; 83690; 85025; 93005; 93010; 99284-25; Q9967

== ENCOUNTER 2018-02-10 18:44 | Emergency (ER) | payer OTHER ==
[2018-02-10 19:12] VITALS: BP 142/67; PULSE 86; TEMP 98.1; BMI 34.2
--- NOTE | 2018-02-10 19:12 | PDOC ---
Rapid Medical Evaluation Time Seen by Provider: 02/10/18 19:06 Medical Evaluation: Allergies Allergy/AdvReac Type Severity Reaction Status Date / Time antiarthritic combination Allergy blister Verified 08/12/17 11:31 no.1 rash [From [place]] camphor [From [place]] Allergy Verified 08/12/17 11:31 menthol [From [place]] Allergy Verified 08/12/17 11:31 methyl salicylate Allergy Verified 08/12/17 11:31 [From [place]illian [place]] rofecoxib [From Vioxx] Allergy Swelling Verified 08/12/17 11:31 tramadol Allergy Hives Verified 08/12/17 11:31 tramadol HCl [From Ultram] Allergy Swelling Verified 08/12/17 11:31 02/10/18 19:06 The patient presents with a chief complaint of: Vaginal bleeding s/p hysterectomy. Pain to the LLQ, radiating to the back starting this morning. I have performed a brief in-person evaluation of this patient; Pertinent physical exam findings: ambulatory, in no respiratory distress. TTP of the LLQ I have ordered the following: CBC, CMP, PT/INR, type and screen, Transvaginal US, UA, UC The patient will proceed to the ED for further evaluation.
[2018-02-10 19:56] LABS: BASO % 0.9 % (0-2.0); EOS % 1.3 % (0-4.5); HEMATOCRIT 37.4 % (32.4-45.2); HEMOGLOBIN 11.7 GM/dL (10.7-15.3); LYMPH % 30.9 % (8-40); MCH 21.7 pg (25.7-33.7); MCHC 31.2 g/dl (32.0-36.0); MEAN CELL VOLUME 69.6 fl (80-96); MEAN PLT VOLUME 7.9 fl (7.5-11.1); NEUT % 59.9 % (42.8-82.8); PLATELET COUNT 280 K/MM3 (134-434); RBC 5.37 M/mm3 (3.60-5.2); RDW 20.4 % (11.6-15.6)
[2018-02-10 20:17] LABS: INR 0.96 (0.82-1.09); PROTHROMBIN TIME (PATIENT) 10.8 SEC (9.7-13.0)
[2018-02-10] MEDS ORDERED: IBUPROFEN 600 MG TABLET (FP) PO ONE ×2 (20:19→20:36)
[2018-02-10 20:29] LABS: ALBUMIN 3.6 g/dl (3.4-5.0); ALK PHOS 138 U/L (45-117); ANION GAP 10 (8-16); BILIRUBIN,TOTAL 0.2 mg/dL (0.2-1.0); BLOOD UREA NITROGEN 11 mg/dL (7-18); CALCIUM 9.5 mg/dL (8.5-10.1); CHLORIDE 108 mmol/L (98-107); CO2 22 mmol/L (21-32); GLUCOSE,RANDOM 88 mg/dL (74-106); POTASSIUM 4.5 mmol/L (3.5-5.1); SGOT/AST 22 U/L (15-37); SGPT/ALT 27 U/L (12-78); SODIUM 140 mmol/L (136-145); TOT PROT 7.6 g/dl (6.4-8.2)
--- NOTE | 2018-02-10 20:44 | PDOC ---
History of Present Illness - General History Source: Patient, Old Records Exam Limitations: No Limitations - History of Present Illness Initial Comments: 02/10/18 20:51 The patient is a 47 year old female with hypertension, previous ovarian cyst ( status post hysterectomy and oophorectomy) who presents to the emergency department today with blood tinged urine for 1 day. The patient reports that she urinated today and when she wiped she had a large bright red blood clot. She endorses associated acute pain when urinating. She notes that her pain radiates to her back and is not accompanied by CVA tenderness. <Antonio Morgan - Last Filed: 02/10/18 22:51> <Khari Heredia - Last Filed: 02/10/18 23:36> - General Chief Complaint: Vaginal Bleeding Stated Complaint: VAGINAL BLEEDING Time Seen by Provider: 02/10/18 19:06 Past History <Antonio Morgan - Last Filed: 02/10/18 22:51> - Past Medical History Anemia: No Asthma: Yes Cancer: No Cardiac Disorders: No CVA: No COPD: No CHF: No Dementia: No Diabetes: No GI Disorders: Yes (HX ULCER/HERNIA, pancreatitis) Disorders: Yes (ovarian cysts) HTN: No Hypercholesterolemia: No Liver Disease: No Seizures: No Thyroid Disease: No - Surgical History Abdominal Surgery: Yes (hernia, ) Appendectomy: No Cardiac Surgery: No Cholecystectomy: No Lung Surgery: No Neurologic Surgery: Yes (EPIDURAL INJECTIONS) Orthopedic Surgery: Yes (L4TH&5TH FINGER REPAIR) - Reproductive History (#): 5 Para: 3 Spontaneous : 2 - Immunization History Immunization Up to Date: Yes - Suicide/Smoking/Psychosocial Hx Smoking Status: No Smoking History: Current every day smoker Have you smoked in the past 12 months: Yes Number of Cigarettes Smoked Daily: 3 If you are a former smoker, when did you quit?: 7 months Information on smoking cessation initiated: Yes 'Breaking Loose' booklet given: 02/10/18 Hx Alcohol Use: No Drug/Substance Use Hx: No Substance Use Type: None Hx Substance Use Treatment: No <Khari Heredia - Last Filed: 02/10/18 23:36> - Past Medical History Allergies/Adverse Reactions: Allergies Allergy/AdvReac Type Severity Reaction Status Date / Time antiarthritic combination Allergy blister Verified 02/10/18 19:07 no.1 rash [From [place]] camphor [From [place]] Allergy Verified 02/10/18 19:07 menthol [From [place]] Allergy Verified 02/10/18 19:07 methyl salicylate Allergy Verified 02/10/18 19:07 [From [place]] rofecoxib [From Vioxx] Allergy Swelling Verified 02/10/18 19:07 tramadol Allergy Hives Verified 02/10/18 19:07 tramadol HCl [From Ultram] Allergy Swelling Verified 02/10/18 19:07 Home Medications: Ambulatory Orders Acetaminophen [Tylenol -] 500 mg PO Q6H #30 tablet MDD 4 Tab 08/12/17 Cephalexin [Keflex] 500 mg PO BID 5 Days #9 capsule MDD 2 Tab 08/12/17 Fluconazole [Diflucan] 150 mg PO ONCE 10 Days #10 tablet 08/12/17 Omeprazole 40 mg PO DAILY 08/12/17 Pregabalin [Lyrica] 75 mg PO BID 08/12/17 Cephalexin Monohydrate [Keflex -] 500 mg PO BID #14 capsule 02/10/18 Fluconazole [Diflucan] 150 mg PO ONCE #1 tablet 02/10/18 Oxycodone HCl/Acetaminophen [Percocet 5-325 mg Tablet] 1 tab PO Q6H PRN #10 tablet MDD 4 tabs 02/10/18 Review of Systems - Review of Systems Able to Perform ROS?: Yes Comments:: 02/10/18 20:52 GENERAL/CONSTITUTIONAL: No fever or chills. No weakness. HEAD, EYES, EARS, NOSE AND THROAT: No change in vision. No ear pain or discharge. No sore throat. GASTROINTESTINAL: No nausea, vomiting, diarrhea or constipation. GENITOURINARY: (+) Dysuria and hematuria. No frequency, or change in urination. CARDIOVASCULAR: No chest pain or shortness of breath. RESPIRATORY: No cough, wheezing, or hemoptysis. MUSCULOSKELETAL: No joint or muscle swelling or pain.(+) Back pain. SKIN: No rash NEUROLOGIC: No headache, vertigo, loss of consciousness, or change in strength/ sensation. ENDOCRINE: No increased thirst. No abnormal weight change. HEMATOLOGIC/LYMPHATIC: No anemia, easy bleeding, or history of blood clots. ALLERGIC/IMMUNOLOGIC: No hives or skin allergy. <Antonio Morgan - Last Filed: 02/10/18 22:51> *Physical Exam - Vital Signs Last Vital Signs Temp Pulse Resp BP Pulse Ox 98.1 F 86 20 142/67 98 02/10/18 19:07 02/10/18 19:07 02/10/18 19:07 02/10/18 19:07 02/10/18 19:07 - Physical Exam Comments: 02/10/18 20:52 GENERAL: Awake, alert, and fully oriented, in no acute distress HEAD: No signs of trauma EYES: PERRLA, EOMI, sclera anicteric, conjunctiva clear ENT: Auricles normal inspection, hearing grossly normal, nares patent, oropharynx clear without exudates. Moist mucosa NECK: Normal ROM, supple, no lymphadenopathy, JVD, or masses LUNGS: Breath sounds equal, clear to auscultation bilaterally. No wheezes, and no crackles HEART: Regular rate and rhythm, normal S1 and S2, no murmurs, rubs or gallops ABDOMEN: Soft, nontender, normoactive bowel sounds. No guarding, no rebound. No masses PELVIC: No blood, (+) Left adnexal tenderness, Os is closed and white. Tenderness to palpation EXTREMITIES: Normal range of motion, no edema. No clubbing or cyanosis. No cords, erythema, or tenderness NEUROLOGICAL: Cranial nerves II through XII grossly intact. Normal speech, normal gait SKIN: Warm, Dry, normal turgor, no rashes or lesions noted. <Antonio Morgan - Last Filed: 02/10/18 22:51> - Vital Signs Last Vital Signs Temp Pulse Resp BP Pulse Ox 98.1 F 86 20 142/67 98 02/10/18 19:07 02/10/18 19:07 02/10/18 19:07 02/10/18 19:07 02/10/18 19:07 <Khari Heredia - Last Filed: 02/10/18 23:36> ED Treatment Course - LABORATORY CBC & Chemistry Diagram: 02/10/18 19:41 02/10/18 19:41 - ADDITIONAL ORDERS Additional order review: Laboratory Results 02/10/18 19:41 Sodium 140 Potassium 4.5 Chloride 108 H Carbon Dioxide 22 Anion Gap 10 BUN 11 Creatinine 1.0 Creat Clearance w eGFR 59.18 Random Glucose 88 Calcium 9.5 Total Bilirubin 0.2 D AST 22 ALT 27 Alkaline Phosphatase 138 H Total Protein 7.6 Albumin 3.6 02/10/18 19:41 RBC 5.37 H MCV 69.6 L MCHC 31.2 L RDW 20.4 H MPV 7.9 Neutrophils % 59.9 Lymphocytes % 30.9 Monocytes % 7.0 Eosinophils % 1.3 D Basophils % 0.9 - RADIOLOGY Radiograph Interpretation: 02/10/18 22:51 EXAM#: TYPE/EXAM: RESULT: [id number] CT/ABDOMEN PELVIS CT W/O CONTR HISTORY PROVIDED: Hematuria TECHNIQUE: Sequential axial images were obtained from the domes of the diaphragm through the symphysis pubis utilizing urinary tract calculi protocol. There is no evidence of calcifications within the kidneys, ureters or urinary bladder suspicious for urinary tract calculi. There is no evidence of hydronephrosis or obstructive uropathy. No significant abnormalities of the liver, spleen, pancreas, or adrenal glands are identified. The gallbladder is clear. The patient is S/P gastric surgery. There is no evidence of intra-abdominal, retroperitoneal or pelvic mass lesions , fluid collections or lymphadenopathy. The uterus has been removed. There is no evidence of acute bony pathology. IMPRESSION: No evidence of urinary tract calculi, obstructive uropathy or acute pathology within the abdomen or pelvis. Reported By: Jack Kelley MD 02/10/182225 KHARI HEREDIA Technologist: Elin Duff Transcribed Date/Time: 02/10/182225 Remnant Sorter: Jack Kelley Printed Date/Time: By: Signed by: Jack Kelley Signed on: 10-Feb-2018 22:26 EXAM#: TYPE/EXAM: RESULT: [id number] US/TRANSVAGINAL ULTRASOUND US HISTORY PROVIDED: Vaginal bleeding. Real time examination of the pelvis utilizing both the transabdominal and transvaginal probes demonstrates the following: The uterus has been removed The ovaries not be identified. There is no evidence of adnexal masses. Trace free fluid is seen within the left adnexa. IMPRESSION: Trace free fluid left adnexa, otherwise normal pelvic sonogram in a patient is S /P hysterectomy. Reported By: Jack Kelley MD 02/10/18 3653 Maria Isabel Eden Technologist: Romi Sow Transcribed Date/Time: 02/10/18 2244 Remnant Sorter: Jack Kelley Printed Date/Time: By: Signed by: Jack Kelley Signed on: 10-Feb-2018 22:45 - Medications Given in the ED: ED Medications Discontinued Medications Generic Name Dose Route Start Last Admin Trade Name Freq PRN Reason Stop Dose Admin Ibuprofen 600 mg 02/10/18 20:19 02/10/18 20:37 Motrin - PO 02/10/18 20:20 Not Given ONCE ONE Oxycodone/Acetaminophen 1 combo 02/10/18 20:43 02/10/18 20:46 Percocet 5/325 - PO 02/10/18 20:44 1 combo ONCE ONE Administration <nAtonio Morgan - Last Filed: 02/10/18 22:51> - LABORATORY CBC & Chemistry Diagram: 02/10/18 19:41 02/10/18 19:41 - ADDITIONAL ORDERS Additional order review: Laboratory Results 02/10/18 19:41 Sodium 140 Potassium 4.5 Chloride 108 H Carbon Dioxide 22 Anion Gap 10 BUN 11 Creatinine 1.0 Creat Clearance w eGFR 59.18 Random Glucose 88 Calcium 9.5 Total Bilirubin 0.2 D AST 22 ALT 27 Alkaline Phosphatase 138 H Total Protein 7.6 Albumin 3.6 02/10/18 19:41 RBC 5.37 H MCV 69.6 L MCHC 31.2 L RDW 20.4 H MPV 7.9 Neutrophils % 59.9 Lymphocytes % 30.9 Monocytes % 7.0 Eosinophils % 1.3 D Basophils % 0.9 - RADIOLOGY Radiology Studies Ordered: Category Date Time Status ABDOMEN & PELVIS CT W/O CONTR [CT] Stat CT Scan 02/10/18 20:43 Ordered - Medications Given in the ED: ED Medications Discontinued Medications Generic Name Dose Route Start Last Admin Trade Name Freq PRN Reason Stop Dose Admin Ibuprofen 600 mg 02/10/18 20:19 02/10/18 20:37 Motrin - PO 02/10/18 20:20 Not Given ONCE ONE <Khari Heredia - Last Filed: 02/10/18 23:36> Medical Decision Making - Medical Decision Making 02/10/18 21:27 a/p: 47yo female with an episode of blood in the urine -states when she wiped she saw blood, concerned bc hx of hysterectomy pain radiates around to the back adnexal ttp on exam on L no l cva ttp, however colicky pain on exam, concern for kidney stone as well will send labs, ultrasound, and ct abd/pelvis to eval of L adnexal pain vs kidney stone discussed plan with the patient no vaginal bleeding on exam blood in urine 02/10/18 23:11 pt updated on labs and imaging pt without kidney stones +uti will give abx trace ff around L adnexa recommend follow up with Dr. shirley wright for d/c to home <Khari Heredia - Last Filed: 02/10/18 23:36> *DC/Admit/Observation/Transfer - Attestations Scribe Attestion: 02/10/18 20:52 Documentation prepared by Antonio Morgan, acting as medical associate for Khari Heredia DO. <Antonio Morgan - Last Filed: 02/10/18 22:51> - Discharge Dispostion Decision to Admit order: No - Attestations Physician Attestion: 02/10/18 23:13 I, Dr. Khari Heredia DO, attest that this document has been prepared under my direction and personally reviewed by me in its entirety. I further attest, that it accurately reflects all work, treatment, procedures and medical decision -making performed by me. <Khari Heredia - Last Filed: 02/10/18 23:36> Diagnosis at time of Disposition: Pelvic pain, Urinary tract infection - Discharge Dispostion Disposition: HOME Condition at time of disposition: Stable - Prescriptions Prescriptions: Cephalexin Monohydrate [Keflex -] 500 mg PO BID #14 capsule Fluconazole [Diflucan] 150 mg PO ONCE #1 tablet Oxycodone HCl/Acetaminophen [Percocet 5-325 mg Tablet] 1 tab PO Q6H PRN #10 tablet MDD 4 tabs PRN Reason: Pain - Referrals Referrals: Cyrus De Leon MD [Primary Care Provider] - Tomás Aldana MD [Staff Physician] - - Patient Instructions Printed Discharge Instructions: DI for Pelvic Pain, DI for Urinary Tract Infection (UTI) Additional Instructions: Please make an appointment to see your [facility] [employer] in 1-2 days. Please take all medications as prescribed. Please return to the ED with any further concerns. - Post Discharge Activity
[2018-02-10 20:52] LABS: URINE APPEARANCE CLOUDY; URINE BILIRUBIN NEGATIVE (<2.0 mg/dL); URINE COLOR YELLOW; URINE GLUCOSE (UA) NEGATIVE (NEGATIVE); URINE KETONE NEGATIVE (NEGATIVE); URINE LEUK ESTERASE TRACE (NEGATIVE); URINE NITRITE NEGATIVE (NEGATIVE); URINE UROBILINOGEN NEGATIVE mg/dL (0.2-1.0)
[2018-02-10 20:53] LABS: URINE PROTEIN 1+ (NEGATIVE)
[2018-02-10 20:56] LABS: EPI CELLS MODERATE /HPF (FEW); URINE MUCUS RARE
[2018-02-10] MEDS ORDERED: CEPHALEXIN MONOHYDRATE 500 MG CAPSULE (UD) PO ONE (22:28)
[2018-02-10] MEDS ORDERED: CEPHALEXIN MONOHYDRATE 500 MG CAPSULE (UD) ONE (23:30)
== END 2018-02-10 23:37 | disposition home or self-care (01) ==
LOC: JER 18:44
DX: N39.0 Urinary tract infection, site not specified (principal); R31.9 Hematuria, unspecified; F17.210 Nicotine dependence, cigarettes, uncomplicated; Z88.8 Allergy status to other drugs, medicaments and biological substances; Z90.710 Acquired absence of both cervix and uterus; Z87.19 Personal history of other diseases of the digestive system
CPT/HCPCS: 36415; 74176-TC; 76830-TC; 80053; 81003; 81015; 85025; 85610; 86850; 86900; 86901; 87086; 99281-25

== ENCOUNTER 2018-02-18 05:36 | Emergency (ER) | payer OTHER ==
[2018-02-18 06:09] VITALS: TEMP 98.4; BMI 32.0
[2018-02-18 06:44] LABS: HCG,QUALITATIVE URINE NEGATIVE; URINE APPEARANCE CLOUDY; URINE BILIRUBIN NEGATIVE (<2.0 mg/dL); URINE COLOR YELLOW; URINE GLUCOSE (UA) NEGATIVE (NEGATIVE); URINE KETONE NEGATIVE (NEGATIVE); URINE NITRITE NEGATIVE (NEGATIVE); URINE UROBILINOGEN NEGATIVE mg/dL (0.2-1.0)
[2018-02-18 06:45] LABS: URINE LEUK ESTERASE 3+ (NEGATIVE); URINE PROTEIN 2+ (NEGATIVE)
[2018-02-18 06:58] LABS: EPI CELLS RARE /HPF (FEW); URINE BACTERIA FEW /hpf (NONE SEEN); URINE MUCUS RARE
--- NOTE | 2018-02-18 07:04 | PDOC ---
History of Present Illness <Niko Alonso - Last Filed: 02/18/18 11:41> - History of Present Illness Initial Comments: 02/18/18 07:24 Ms. Sanchez is a 47 yo female w/ pmh of asthma, HTN, fibroids s/p hysterectomy, and right sided oophorectomy who presents for evaluation of continuing left sided pelvic pain with blood in her urine. She presented 8 days ago for similar complete and was found to have UTI/yeast infection. Transvaginal US was negative. She reports this has continued since her visit last week for similar pain. The patient denies chest pain, shortness of breath, headache and dizziness. Denies fever, chills, nausea, vomit, diarrhea and constipation. Allergies: tramadol, rofecoxib, menthol, methyl salicylate, camphor <Nathan Alonso - Last Filed: 02/18/18 11:45> - General Chief Complaint: Pain Stated Complaint: PAIN, LEFT SIDE Time Seen by Provider: 02/18/18 07:03 Past History <Niko Alonso - Last Filed: 02/18/18 11:41> - Past Medical History Anemia: No Asthma: Yes Cancer: No Cardiac Disorders: No CVA: No COPD: No CHF: No Dementia: No Diabetes: No GI Disorders: Yes (HX ULCER/HERNIA, pancreatitis) Disorders: Yes (ovarian cysts) HTN: No Hypercholesterolemia: No Liver Disease: No Seizures: No Thyroid Disease: No - Surgical History Abdominal Surgery: Yes (hernia, ) Appendectomy: No Cardiac Surgery: No Cholecystectomy: No Lung Surgery: No Neurologic Surgery: Yes (EPIDURAL INJECTIONS) Orthopedic Surgery: Yes (L4TH&5TH FINGER REPAIR) - Reproductive History (#): 5 Para: 3 Spontaneous : 2 - Immunization History Immunization Up to Date: Yes - Suicide/Smoking/Psychosocial Hx Smoking Status: No Smoking History: Current every day smoker Have you smoked in the past 12 months: Yes Number of Cigarettes Smoked Daily: 5 If you are a former smoker, when did you quit?: 7 months Information on smoking cessation initiated: No 'Breaking Loose' booklet given: 02/10/18 Hx Alcohol Use: No Drug/Substance Use Hx: No Substance Use Type: None Hx Substance Use Treatment: No <Nathan Alonso - Last Filed: 02/18/18 11:45> - Past Medical History Allergies/Adverse Reactions: Allergies Allergy/AdvReac Type Severity Reaction Status Date / Time antiarthritic combination Allergy blister Verified 02/10/18 19:07 no.1 rash [From [place]] camphor [From [place]] Allergy Verified 02/10/18 19:07 menthol [From [place]] Allergy Verified 02/10/18 19:07 methyl salicylate Allergy Verified 02/10/18 19:07 [From [place]] rofecoxib [From Vioxx] Allergy Swelling Verified 02/10/18 19:07 tramadol Allergy Hives Verified 02/10/18 19:07 tramadol HCl [From Ultram] Allergy Swelling Verified 02/10/18 19:07 Home Medications: Ambulatory Orders Omeprazole 40 mg PO DAILY 02/18/18 Sulfamethoxazole/Trimethoprim [Bactrim Ds -] 1 tab PO BID #14 tablet 02/18/18 Review of Systems - Review of Systems Comments:: 02/18/18 07:37 GENERAL/CONSTITUTIONAL: No fever or chills. No weakness. HEAD, EYES, EARS, NOSE AND THROAT: No change in vision. No ear pain or discharge. No sore throat. CARDIOVASCULAR: No chest pain or shortness of breath RESPIRATORY: No cough, wheezing, or hemoptysis. GASTROINTESTINAL: No nausea, vomiting, diarrhea or constipation. GENITOURINARY: +Pain with urination (left sided) with blood on wiping. MUSCULOSKELETAL: No joint or muscle swelling or pain. No neck or back pain. SKIN: No rash NEUROLOGIC: No headache, vertigo, loss of consciousness, or change in strength/ sensation. ENDOCRINE: No increased thirst. No abnormal weight change HEMATOLOGIC/LYMPHATIC: No anemia, easy bleeding, or history of blood clots. ALLERGIC/IMMUNOLOGIC: No hives or skin allergy. <Nathan Alonso - Last Filed: 02/18/18 11:45> *Physical Exam - Vital Signs Last Vital Signs Temp Pulse Resp BP Pulse Ox 98.4 F 99 H 18 128/89 98 02/18/18 06:04 02/18/18 08:50 02/18/18 08:50 02/18/18 08:50 02/18/18 08:50 <Niko Alonso - Last Filed: 02/18/18 11:41> - Vital Signs Last Vital Signs Temp Pulse Resp BP Pulse Ox 98.4 F 113 H 18 132/91 99 02/18/18 06:04 02/18/18 06:04 02/18/18 06:04 02/18/18 06:04 02/18/18 06:04 - Physical Exam Comments: 02/18/18 07:37 GENERAL: Awake, alert, and fully oriented, in no acute distress HEAD: No signs of trauma, normocephalic, atraumatic EYES: PERRLA, EOMI, sclera anicteric, conjunctiva clear ENT: Auricles normal inspection, hearing grossly normal, nares patent, oropharynx clear without exudates. Moist mucosa NECK: Normal ROM, supple, no lymphadenopathy, JVD, or masses LUNGS: +Patient noted to be diffusely wheezy. No distress, speaks full sentences. HEART: Regular rate and rhythm, normal S1 and S2, no murmurs, rubs or gallops, peripheral pulses normal and equal bilaterally. ABDOMEN: Soft, nontender, normoactive bowel sounds. No guarding, no rebound. No masses EXTREMITIES: Normal inspection, Normal range of motion, no edema. No clubbing or cyanosis. NEUROLOGICAL: Cranial nerves II through XII grossly intact. Normal speech, normal gait, no focal sensorimotor deficits SKIN: Warm, Dry, normal turgor, no rashes or lesions noted. <Nathan Alonso - Last Filed: 02/18/18 11:45> ED Treatment Course - LABORATORY CBC & Chemistry Diagram: 02/18/18 07:55 02/18/18 08:44 - ADDITIONAL ORDERS Additional order review: Laboratory Results 02/18/18 02/18/18 02/18/18 08:44 07:55 06:31 Sodium 141 Cancelled Potassium 4.2 Cancelled Chloride 113 H Cancelled Carbon Dioxide 17 L Cancelled Anion Gap 11 Cancelled BUN 15 Cancelled Creatinine 0.9 Cancelled Creat Clearance w eGFR > 60 Cancelled Random Glucose 109 H Cancelled Calcium 8.7 Cancelled Total Bilirubin 0.2 Cancelled AST 21 Cancelled ALT 31 Cancelled Alkaline Phosphatase 133 H Cancelled Total Protein 7.0 Cancelled Albumin 3.2 L Cancelled Urine Color Yellow Urine Appearance Cloudy Urine pH 5.0 Ur Specific [place] 1.015 Urine Protein 2+ H Urine Glucose (UA) Negative Urine Ketones Negative Urine Blood 3+ H Urine Nitrite Negative Urine Bilirubin Negative Urine Urobilinogen Negative Ur Leukocyte Esterase 3+ H Urine WBC (Auto) 910 Urine RBC (Auto) 453 Ur Epithelial Cells Rare Urine Bacteria Few Urine Mucus Rare Urine HCG, Qual Negative 02/18/18 07:55 RBC 5.18 MCV 70.2 L MCHC 31.2 L RDW 20.7 H MPV 7.8 Neutrophils % 69.3 Lymphocytes % 20.2 D Monocytes % 9.8 Eosinophils % 0.1 D Basophils % 0.6 - RADIOLOGY Radiology Studies Ordered: Category Date Time Status CHEST PA & LAT [RAD] Stat Radiology 02/18/18 07:59 Completed - Medications Given in the ED: ED Medications Discontinued Medications Generic Name Dose Route Start Last Admin Trade Name Freq PRN Reason Stop Dose Admin Acetaminophen 1,000 mg 02/18/18 07:55 02/18/18 08:35 Ofirmev Injection - IVPB 02/18/18 07:56 1,000 mg ONCE ONE Administration Albuterol/Ipratropium 1 amp 02/18/18 07:15 02/18/18 08:00 Duoneb - NEB 02/18/18 08:01 1 amp Q15M MARCO ANTONIO Administration Ceftriaxone Sodium 1,000 mg/ 50 mls @ 100 mls/hr 02/18/18 07:41 02/18/18 07: 54 Dextrose IVPB 02/18/18 08:10 100 mls/hr ONCE ONE Administration Sodium Chloride 1,000 mls @ 1,000 mls/hr 02/18/18 07:41 02/18/18 07:54 Normal Saline - IV 02/18/18 08:40 1,000 mls/hr ASDIR STA Administration Ketorolac Tromethamine 15 mg 02/18/18 10:07 02/18/18 10:20 Toradol Injection - IVPUSH 02/18/18 10:08 15 mg ONCE ONE Administration <Niko Alonso - Last Filed: 02/18/18 11:41> - LABORATORY CBC & Chemistry Diagram: 02/18/18 07:55 02/18/18 08:44 - ADDITIONAL ORDERS Additional order review: Laboratory Results 02/18/18 06:31 Urine Color Yellow Urine Appearance Cloudy Urine pH 5.0 Ur Specific [place] 1.015 Urine Protein 2+ H Urine Glucose (UA) Negative Urine Ketones Negative Urine Blood 3+ H Urine Nitrite Negative Urine Bilirubin Negative Urine Urobilinogen Negative Ur Leukocyte Esterase 3+ H Urine HCG, Qual Negative <RamanasusanNathan - Last Filed: 02/18/18 11:45> Medical Decision Making - Medical Decision Making 02/18/18 07:38 Ms. Sanchez is a 47 yo female w/ pmh as described who presents for evaluation of pelvic pain concerning for UTI. UA put in by previous team shows 3 + Leukocytes as below. Patient also sounds diffusely wheezy on exam. Duonebs started for symptomatic relief and 1gm rocephin given for UTI treatment. 02/18/18 08:39 Rocephin 1gm given for treatment of UTI given outpatient failure with keflex. IV tylenol given for symptomatic relief. 02/18/18 11:44 Patient reporting some relief w/ above treatment. CT abdomen negative for acute process. Discharging patient to home w/ outpatient Rx. <Nathan Alonso - Last Filed: 02/18/18 11:45> *DC/Admit/Observation/Transfer <Niko Alonso - Last Filed: 02/18/18 11:41> <Nathan Alonso - Last Filed: 02/18/18 11:45> Diagnosis at time of Disposition: Urinary tract infection Qualifiers: Urinary tract infection type: site unspecified Hematuria presence: with hematuria Qualified Code(s): N39.0 - Urinary tract infection, site not specified ; R31.9 - Hematuria, unspecified - Discharge Dispostion Disposition: HOME - Prescriptions Prescriptions: Sulfamethoxazole/Trimethoprim [Bactrim Ds -] 1 tab PO BID #14 tablet - Referrals Referrals: Cyrus De Leon MD [Primary Care Provider] - - Patient Instructions Printed Discharge Instructions: DI for Urinary Tract Infection (UTI) Additional Instructions: Take the Bactrim as prescribed to treat your urine infection. If your symptoms do not improve in 48 hours or if you experience worsening pain , fevers, or any other concerning symptoms, return to the ER immediately. Otherwise, follow up with your primary doctor within 1 week. - Post Discharge Activity
[2018-02-18] MEDS ORDERED: ALBUTEROL SO4 0.083% IH SOL 2.5 MG/3 ML VIAL.NEB. NEB ONE ×3 (07:17→12:06)
[2018-02-18] MEDS: ALBUTEROL SO4 2.5/IPRATROPIUM 0.5 INH SOL 3 ML VIAL.NEB. NEB SCH ×4 (07:22→08:00)
[2018-02-18] MEDS ORDERED: SODIUM CHLORIDE 1,000 ML IV STA (07:41)
[2018-02-18] MEDS ORDERED: CEFTRIAXONE 1,000 MG in DEXTROSE 5%-WATER - 50 ML IVPB ONE (07:41)
[2018-02-18] MEDS ORDERED: CEFTRIAXONE 1 GM/50 ML BAG ONE (07:48)
[2018-02-18] MEDS ORDERED: ACETAMINOPHEN 1000 MG/100 ML VIAL (NON FORMULARY) IVPB ONE (07:55)
--- NOTE | 2018-02-18 08:05 | PDOC ---
Attending Attestation - Resident Resident Name: Nathan Alonso - ED Attending Attestation I have performed the following: I have examined & evaluated the patient, The case was reviewed & discussed with the resident, I agree w/resident's findings & plan, Exceptions are as noted - HPI HPI: 02/18/18 08:01 "The patient is a 47 year old female, with a significant past medical history of hypertension, asthma, fibroids(s/p hysterectomy and right sided oophorectomy) , who presents to the emergency department with pelvic pain for approximately 8 days. The patient reports her pain is left sided and nonradiating in nature. Patient reports she was previously evaluated in the ED on 02/10/18 for same complaint and was discharged with Keflex and Fluconazole, which she has been compliant with. Pt states that the pain subsided initially after she started the abx. However, it returned shortly afterwards. She denies any current hematuria, frequency, or urgency. Denies any fever, chills, headache, or dizziness. She denies any abdominal pain, nausea, vomiting, diarrhea, or constipation. She denies any recent travel or sick contacts. Pt also reports cough and wheezing for several days. Has h/o asthma which she states has been triggered by a cold last week. Denies CP. Denies leg swelling. Uses her albuterol pump at home with some relief. Allergies: Per nursing notes " - Physicial Exam PE: 02/18/18 08:05 "GENERAL: Awake, alert, and fully oriented, in no acute distress. HEAD: No signs of trauma EYES: PERRLA, EOMI, sclera anicteric, conjunctiva clear ENT: Auricles normal inspection, hearing grossly normal, nares patent, oropharynx clear without exudates. Moist mucosa NECK: Nontender, no stepoffs, Normal ROM, supple, no lymphadenopathy, JVD, or masses LUNGS: + Expiratory wheezes, and no crackles HEART: +Tachycardic. Regular rhythm, normal S1 and S2, no murmurs, rubs or gallops ABDOMEN: + LLQ TTP, normoactive bowel sounds. No guarding, no rebound. No masses EXTREMITIES: Normal range of motion, no edema. No clubbing or cyanosis. No cords, erythema, or tenderness NEUROLOGICAL: Cranial nerves II through XII intact. 5/5 strength and sensation in all extremities, Normal speech, normal gait, normal cerebellar function SKIN: Warm, Dry, normal turgor, no rashes or lesions noted. " - Medical Decision Making 02/18/18 08:07 47 F with L pelvic pain x 1 week. Was seen previously and had normal TVUS and non con CTAP. Pt found to have UTI and tx'ed with keflex. Today, UA notable for significant pyuria and hematuria. Pt also with mild asthma flare. - Labs, UA, UCx - CXR - IVF, abx - Nebs 02/18/18 11:43 Labs unremarkable. CXR and CT normal Pt reassessed - now breathing much better, lung exam clear Will DC with bactrim for UTI and strict return precautions Pt is well appearing, with normal vitals. Clinically stable for DC at this time. I discussed the physical exam findings, ancillary test results and final diagnoses with the patient. I answered all of the patient's questions. The patient was satisfied with the care received and felt comfortable with the discharge plan and treatment plan. The patient agrees to follow up with the primary care physician within 24-72 hours. <Niko Alonso - Last Filed: 02/18/18 11:43> - Medical Decision Making 02/18/18 15:25 Documentation prepared by Eduardo Swan, acting as phlebotomist medical lab assistant for Niko Alonso MD. <Eduardo Swan - Last Filed: 02/18/18 15:25> ED Treatment Course - LABORATORY CBC & Chemistry Diagram: 02/18/18 07:55 02/18/18 08:44 - ADDITIONAL ORDERS Additional order review: Laboratory Results 02/18/18 02/18/18 02/18/18 08:44 07:55 06:31 Sodium 141 Cancelled Potassium 4.2 Cancelled Chloride 113 H Cancelled Carbon Dioxide 17 L Cancelled Anion Gap 11 Cancelled BUN 15 Cancelled Creatinine 0.9 Cancelled Creat Clearance w eGFR > 60 Cancelled Random Glucose 109 H Cancelled Calcium 8.7 Cancelled Total Bilirubin 0.2 Cancelled AST 21 Cancelled ALT 31 Cancelled Alkaline Phosphatase 133 H Cancelled Total Protein 7.0 Cancelled Albumin 3.2 L Cancelled Urine Color Yellow Urine Appearance Cloudy Urine pH 5.0 Ur Specific [place] 1.015 Urine Protein 2+ H Urine Glucose (UA) Negative Urine Ketones Negative Urine Blood 3+ H Urine Nitrite Negative Urine Bilirubin Negative Urine Urobilinogen Negative Ur Leukocyte Esterase 3+ H Urine WBC (Auto) 910 Urine RBC (Auto) 453 Ur Epithelial Cells Rare Urine Bacteria Few Urine Mucus Rare Urine HCG, Qual Negative 02/18/18 07:55 RBC 5.18 MCV 70.2 L MCHC 31.2 L RDW 20.7 H MPV 7.8 Neutrophils % 69.3 Lymphocytes % 20.2 D Monocytes % 9.8 Eosinophils % 0.1 D Basophils % 0.6 - RADIOLOGY Radiograph Interpretation: 02/18/18 15:24 EXAM: CT Abdomen and Pelvis INTERPRETED BY: Dr. Kelley REVIEWED BY: Dr. Alonso IMPRESSION: 1. Diffuse fatty infiltration of the liver. 2. Thickening of the urinary bladder. 3. No evidence of acute pathology within the abdomen or pelvis. Please see above discussion. - Medications Given in the ED: ED Medications Discontinued Medications Generic Name Dose Route Start Last Admin Trade Name Freq PRN Reason Stop Dose Admin Acetaminophen 1,000 mg 02/18/18 07:55 02/18/18 08:35 Ofirmev Injection - IVPB 02/18/18 07:56 1,000 mg ONCE ONE Administration Albuterol/Ipratropium 1 amp 02/18/18 07:15 02/18/18 08:00 Duoneb - NEB 02/18/18 08:01 1 amp Q15M MARCO ANTONIO Administration Ceftriaxone Sodium 1,000 mg/ 50 mls @ 100 mls/hr 02/18/18 07:41 02/18/18 07: 54 Dextrose IVPB 02/18/18 08:10 100 mls/hr ONCE ONE Administration Sodium Chloride 1,000 mls @ 1,000 mls/hr 02/18/18 07:41 02/18/18 07:54 Normal Saline - IV 02/18/18 08:40 1,000 mls/hr ASDIR STA Administration Ketorolac Tromethamine 15 mg 02/18/18 10:07 02/18/18 10:20 Toradol Injection - IVPUSH 02/18/18 10:08 15 mg ONCE ONE Administration <Eduardo Swan - Last Filed: 02/18/18 15:25>
[2018-02-18] MEDS ORDERED: ACETAMINOPHEN INJECTION 100 ML IVPB ONE (08:16)
[2018-02-18 08:19] LABS: BASO % 0.6 % (0-2.0); EOS % 0.1 % (0-4.5); HEMATOCRIT 36.4 % (32.4-45.2); HEMOGLOBIN 11.3 GM/dL (10.7-15.3); LYMPH % 20.2 % (8-40); MCH 21.9 pg (25.7-33.7); MCHC 31.2 g/dl (32.0-36.0); MEAN CELL VOLUME 70.2 fl (80-96); MEAN PLT VOLUME 7.8 fl (7.5-11.1); MONO % 9.8 % (3.8-10.2); NEUT % 69.3 % (42.8-82.8); PLATELET COUNT 422 K/MM3 (134-434); RBC 5.18 M/mm3 (3.60-5.2); RDW 20.7 % (11.6-15.6)
[2018-02-18 09:06] LABS: PLATELET ESTIMATE NORMAL; TARGET CELLS 1+
[2018-02-18 09:27] LABS: CHLORIDE 113 mmol/L (98-107); POTASSIUM 4.2 mmol/L (3.5-5.1); SODIUM 141 mmol/L (136-145)
[2018-02-18 09:40] LABS: ALBUMIN 3.2 g/dl (3.4-5.0); ALK PHOS 133 U/L (45-117); ANION GAP 11 (8-16); BILIRUBIN,TOTAL 0.2 mg/dL (0.2-1.0); BLOOD UREA NITROGEN 15 mg/dL (7-18); CALCIUM 8.7 mg/dL (8.5-10.1); CO2 17 mmol/L (21-32); CREATININE 0.9 mg/dL (0.55-1.02); GLUCOSE,RANDOM 109 mg/dL (74-106); SGOT/AST 21 U/L (15-37); SGPT/ALT 31 U/L (12-78)
[2018-02-18] MEDS ORDERED: KETOROLAC TROMETHAMINE 15 MG/ML VIAL IVPUSH ONE (10:07)
[2018-02-18] MEDS ORDERED: KETOROLAC TROMETHAMINE 15 MG/ML VIAL ONE (10:24)
[2018-02-18] MEDS ORDERED: ALBUTEROL SO4 2.5/IPRATROPIUM 0.5 INH SOL 3 ML VIAL.NEB. NEB ONE (11:43)
[2018-02-18 12:13] VITALS: BP 143/77; PULSE 102
--- NOTE | 2018-02-20 07:29 | PDOC ---
Patient Follow-up (Call Back) - Post ED Follow - Up Disposition at time of original discharge: HOME Reason for Call Back: Abnwl. Microbiology (Patient's urine culture on preliminary report shows non-lactose fermenting GNB greater than 100,000 CFU per mL. Patient currently on Bactrim. Will await final report.)
--- NOTE | 2018-02-22 12:14 | PDOC ---
Patient Follow-up (Call Back) - Post ED Follow - Up Disposition at time of original discharge: HOME Reason for Call Back: Abnwl. Microbiology ([place]-sensitive Salmonella in urine. Pt given Rx for bactrim. currently feels better after antibiotics.)
== END 2018-02-18 12:14 | disposition home or self-care (01) ==
LOC: JER 05:36
PROC: 3E033NZ Introduction of Analgesics, Hypnotics, Sedatives into Peripheral Vein, Percutaneous Approach (ICD-10-PCS; principal; 2018-02-18)
PROC: 3E03329 Introduction of Other Anti-infective into Peripheral Vein, Percutaneous Approach (ICD-10-PCS; 2018-02-18)
PROC: 3E0333Z Introduction of Anti-inflammatory into Peripheral Vein, Percutaneous Approach (ICD-10-PCS; 2018-02-18)
PROC: 3E0337Z Introduction of Electrolytic and Water Balance Substance into Peripheral Vein, Percutaneous Approach (ICD-10-PCS; 2018-02-18)
PROC: 3E0F7GC Introduction of Other Therapeutic Substance into Respiratory Tract, Via Natural or Artificial Opening (ICD-10-PCS; 2018-02-18)
DX: N39.0 Urinary tract infection, site not specified (principal); R31.9 Hematuria, unspecified
CPT/HCPCS: 36415; 71046-TC-FY; 74177-TC; 80053; 81003; 81015; 84703; 85025; 87086; 87186; 94640; 96361; 96365; 96375; 99282-25; J0131; J7030; J7620